=== PATIENT | male | born 1975 | race Caucasian/White ===

== ENCOUNTER 2023-05-20 07:52 | Outpatient (CLI) | payer OTHER, SELFPAY | END 2023-05-20 07:53 | disposition home or self-care (01) | PROVIDERS: PCP Nurse Practitioner Family; Visit Provider Otolaryngology | DX: H90.3 Sensorineural hearing loss, bilateral (principal); H93.19 Tinnitus, unspecified ear; J31.0 Chronic rhinitis | CPT/HCPCS: 92557; 92567 ==